=== PATIENT | male | born 1955 | race Caucasian/White ===

== ENCOUNTER → 2025-04-04 | Day surgery (SDC) | payer MEDICARE, MEDICAID ==
[2025-04-02 14:17] LABS: Urine Bacteria None Seen /hpf (None Seen)
[2025-04-02 14:19] LABS: Basophils # (auto) 0.1 10 ^3/uL (0-0.2); Basophils % (auto) 1.1 % (0.0-2.0); Eosinophils # (auto) 0.3 10 ^3/uL (0-0.8); Eosinophils % (auto) 6.1 % (0.0-7.0); Hematocrit 43.3 % (41.0-53.0); Hemoglobin 14.8 g/dL (13.5-17.5); Lymphocytes # (auto) 1.2 10 ^3/uL (0.4-5.4); Lymphocytes % (auto) 21.5 % (10.0-50.0); Mean Corpuscular Hemoglobin 35.3 pg (28.0-32.0); Mean Corpuscular Hgb Conc. 34.2 g/dL (32.0-36.0); Mean Corpuscular Volume 103.1 fL (80.0-100.0); Monocytes # (auto) 0.4 10 ^3/uL (0-1.3); Monocytes % (auto) 7.8 % (0.0-12.0); Neutrophils # (auto) 3.6 10 ^3/uL (1.6-8.6); Neutrophils % (auto) 63.5 % (37.0-80.0); Nucleated Red Blood Cells % 0.1 %; Platelet Count (auto) 221 10^3/uL (140-450); Red Cell Distribution Width 14.3 % (11.8-14.3); White Blood Cell 5.7 10^3/uL (4.4-10.8)
[2025-04-02 14:32] LABS: Urine Blood Negative /uL (Negative); Urine Clarity Clear (Clear); Urine Color Yellow (Yellow); Urine Protein, UAD Negative (Negative); Urine Specific Gravity 1.022 (1.001-1.035); Urine Squamous Epithelial Cell None Seen /hpf (<5); Urine Urobilinogen Normal (Negative); Urine WBC < 1 /HPF (0-3); Urine pH 5.5 (5.0-9.0)
[2025-04-02 14:36] LABS: INR 0.99 (0.9-1.15); Partial Thromboplastin Time 27.9 SEC (24.5-34.5); Prothrombin Time 10.5 sec (9.3-11.8)
[2025-04-02 15:14] LABS: Alanine Aminotransferase 22 U/L (7-40); Albumin 4.2 g/dL (3.2-4.8); Alkaline Phosphatase 83 U/L (46-116); Anion Gap 6 (5-15); BUN/Creatinine Ratio 14.4 (10.0-20.0); Blood Urea Nitrogen 13 mg/dL (9-23); Calcium 9.1 mg/dL (8.7-10.4); Carbon Dioxide 29 mmol/L (20-31); Chloride 104 mmol/L (98-107); Glucose 85 mg/dL (74-106); Sodium 139 mmol/L (136-145); Total Protein 6.6 g/dL (5.7-8.2)
[2025-04-02 15:15] LABS: Bilirubin, Total 0.5 mg/dL (0.2-1.0)
[2025-04-02 15:17] LABS: Potassium 5.4 mmol/L (3.5-5.1)
[2025-04-02 15:29] LABS: Aspartate Aminotransferase 20 U/L (13-40)
[~2025-04-04] VITALS: Ht 172.7 cm; Wt 127.0 kg
[~2025-04-04] MED LIST: ACET-2058 PO; ACETAMINOPHEN IV 1000 MG/100ML (10MG/ML) IV PRN; CHOL20004 PO; FINA5TAB4 PO; FLUT250M2 IN; FOLI800T16 PO; HYDROmorphone HCL 2 MG/ML VL/or syr IV PRN; LORA5SYP23 PO; METH2.5T PO; ONDANSETRON HCL 4 MG/2 ML VIAL IV ONE; PANT40T PO; POLY335015 PO; PROPOFOL 10 MG/ML 20 ML IV ONE; RIVA20TA PO; SOTA80TA PO; SPIR25TA8 PO; TADA5TAB11 PO; TAMS0.4C39 PO; TIRZ15IN2 SC; TRAZ-228 PO; ceFAZolin 1GM VL ONE; ePHEDrine SULFATE 50 MG/ML AMP ONE; fentaNYL CITRATE 100 MCG/2 ML VL ONE
[2025-04-04] MEDS: ceFAZolin 2 GM/D5W50ml 50 ML IV ONE (12:00)
[2025-04-04 12:30] VITALS: TEMP 98; O2SAT 95
--- NOTE | 2025-04-04 12:57 | DVHOP2 ---
Operative Report - 2 Report Details Date: 04/04/25 Preop Diagnosis: upper back cyst Postop Diagnosis: UPPER BACK CYST Surgeon: Dr. Ashu Liz, Business Support Administrator: Sherita Stokes, Anesthesiologist: Dr. Thornton Anesthesia: Mac Consent: The patient was informed of the risks and benefits of the procedure. These incl ude but are not limited to complications of anesthesia, postoperative infection, incomplete relief of symptoms, recurrence of symptoms, damage to blood vessels, nerves and tendons, deep venous thrombosis, pulmonary embolism and possible need for repeat surgery in the future. Name of Procedure Performed excision of upper back cyst Procedure Details Procedure Details: under the supervision of Dr. Liz the patient was brought into the OR 2. Under adequate anesthesia patient was placed in a left lateral position . The area was prepped and draped. The upper back prior to making an elliptical incision was infiltrated with 1:1 .025% Marcaine and 1% lidocaine with epi. The cyst along with the sac was excised in its entirety. The area was than pulse lavaged with normal saline and 1 gm ancef. Closure was accomplished with 0-Prolene. Sponge, needle and blade counts were correct. Patient transferred to recovery. Specimen: sebaceous cyst Condition Good Disposition Home SHERITA STOKES NP Apr 04, 2025 12:57
[2025-04-04 13:15] VITALS: BP 106/57; PULSE 72; RESP 12; O2SAT 96
== END | disposition home or self-care (01) ==
LOC: SUR 09:39
PROVIDERS: ATTEND Surgery
DX: R22.2 Localized swelling, mass and lump, trunk (principal); L72.0 Epidermal cyst; L72.3 Sebaceous cyst; I48.91 Unspecified atrial fibrillation; I47.10 Supraventricular tachycardia, unspecified; E78.00 Pure hypercholesterolemia, unspecified; E66.9 Obesity, unspecified; Z68.41 Body mass index [BMI] 40.0-44.9, adult; Z79.01 Long term (current) use of anticoagulants; Z79.899 Other long term (current) drug therapy; Z87.11 Personal history of peptic ulcer disease; Z98.84 Bariatric surgery status; Z98.890 Other specified postprocedural states; Z88.8 Allergy status to other drugs, medicaments and biological substances
CPT/HCPCS: 11406; 36415; 80053; 81001; 85025; 85610; 85730; 88304; J0690; J2704; J3010; A4565